=== PATIENT | female | born 1990 | race Two or more races ===

== ENCOUNTER 2020-03-05 04:16 | Emergency (ER) | payer MEDICAID, OTHER ==
[~2020-03-05] VITALS: Ht 154.9 cm; Wt 113.6 kg
[~2020-03-05 04:16] MED LIST: NOCURR
[2020-03-05 05:11] LABS: BASOPHILS % (AUTO) 0.7 % (0.0-2.0); EOSINOPHILS % (AUTO) 1.5 % (1.0-6.0); HEMOGLOBIN 8.1 g/dL (12.0-16.0); LYMPHOCYTES # (AUTO) 2.3 K/uL (1.0-4.8); LYMPHOCYTES % (AUTO) 22.6 % (22.0-44.0); MEAN CORPUSCULAR HEMOGLOBIN 16.6 pg (26.0-34.0); MEAN CORPUSCULAR HGB CONC 29.9 G/dL (31.0-37.0); MEAN CORPUSCULAR VOLUME 56 fL (80-100); MONOCYTES # (AUTO) 0.5 K/uL (0.1-1.0); NEUTROPHILS % (AUTO) 70.2 % (40.0-70.0); PLATELET COUNT (AUTO) 594 K/uL (150-450); RED BLOOD CELL COUNT(AUTO) 4.85 MIL/uL (4.00-5.20); RED CELL DISTRIBUTION WIDTH 20.2 % (11.5-14.5)
[2020-03-05 07:01] VITALS: BP 124/88
== END 2020-03-05 07:05 | disposition home or self-care (01) ==
LOC: EMS 04:16
DX: N92.1 Excessive and frequent menstruation with irregular cycle (principal)
CPT/HCPCS: 76856; 86850; 86900; 86901

== ENCOUNTER 2020-11-26 15:12 | Emergency (ER) | payer MEDICAID ==
[~2020-11-26] VITALS: Ht 154.9 cm; Wt 118.2 kg
[2020-11-26 15:14] VITALS: BP 137/88
== END 2020-11-26 16:11 | disposition home or self-care (01) ==
LOC: EMS 15:13
DX: K05.10 Chronic gingivitis, plaque induced (principal); K08.89 Other specified disorders of teeth and supporting structures
CPT/HCPCS: 99283; Z7502

== ENCOUNTER 2022-10-08 22:01 | Emergency (ER) | payer MEDICAID ==
[~2022-10-08] VITALS: Ht 154.9 cm; Wt 114.0 kg
[2022-10-08 23:12] LABS: BASOPHILS % (AUTO) 0.6 % (0.0-2.0); HEMATOCRIT 36.4 % (36-46); HEMOGLOBIN 11.5 g/dL (12.0-16.0); LYMPHOCYTES # (AUTO) 2.7 K/uL (1.0-4.8); LYMPHOCYTES % (AUTO) 26.3 % (22.0-44.0); MEAN CORPUSCULAR HEMOGLOBIN 21.8 pg (26.0-34.0); MEAN CORPUSCULAR HGB CONC 31.6 G/dL (31.0-37.0); MEAN CORPUSCULAR VOLUME 69 fL (80-100); MONOCYTES # (AUTO) 0.6 K/uL (0.1-1.0); MONOCYTES % (AUTO) 5.7 % (2.0-9.0); NEUTROPHILS # (AUTO) 6.6 K/uL (1.8-7.7); NEUTROPHILS % (AUTO) 65.4 % (40.0-70.0); PLATELET COUNT (AUTO) 424 K/uL (150-450); RED BLOOD CELL COUNT(AUTO) 5.26 MIL/uL (4.00-5.20); RED CELL DISTRIBUTION WIDTH 20.2 % (11.5-14.5)
[2022-10-08 23:25] LABS: ANION GAP 8 mmol/L (8-16); CALCIUM, TOTAL 8.9 mg/dL (8.8-10.5); CARBON DIOXIDE 26 mmol/L (22-29); CHLORIDE 100 mmol/L (98-107); GLOMERULAR FILTR. RATE CALC > 60 mL/min (>60); GLUCOSE,RANDOM 112 mg/dL (70-110); POTASSIUM 3.7 mmol/L (3.5-5.1); PROTHROMBIN TIME 10.2 SEC (9.4-11.6); SODIUM SERUM 134 mmol/L (136-145); UREA NITROGEN, BLOOD 16 mg/dL (7-18)
[2022-10-09 00:17] LABS: ERYTHROCYTE SEDIMENTATION RATE 72 MM/HR (0-20)
[2022-10-09 00:25] LABS: APPEARANCE,URINE CLEAR (CLEAR); BILIRUBIN,URINE NEGATIVE (NEGATIVE); GLUCOSE, URINE (UA) NEGATIVE (NEGATIVE); KETONES,URINE TRACE mg/dL (NEGATIVE); LEUKOCYTE ESTERASE ,URINE NEGATIVE (NEGATIVE); NITRATE,URINE NEGATIVE (NEGATIVE); OCCULT BLOOD,URINE SMALL (NEGATIVE); PH,URINE 5.5 (5.0-8.0); PROTEIN,URINE TRACE mg/dL (NEGATIVE); SPECIFIC GRAVITIY, URINE 1.033 (1.003-1.030); UROBILINOGEN,URINE <=1.0 mg/dL (<=1.0)
[2022-10-09 00:41] LABS: BACTERIA,URINE None Seen /HPF (None Seen); HYALINE CASTS, URINE 0-2 /LPF (None Seen); RBC,URINE 0-2 /HPF (0-2); SQUAMOUS EPITHELIAL CELL,UR Few /LPF (None Seen); WBC,URINE None Seen /HPF (0-5)
[2022-10-09 01:02] VITALS: BP 132/70
== END 2022-10-09 01:03 | disposition home or self-care (01) ==
LOC: EMS 22:03
DX: D69.0 Allergic purpura (principal)
CPT/HCPCS: 80048; 81001; 85025; 85610; 85651; 85730; 99283

== ENCOUNTER 2022-11-18 10:37 | Emergency (ER) | payer OTHER ==
[~2022-11-18] VITALS: Ht 154.9 cm; Wt 125.5 kg
[2022-11-18] MEDS ORDERED: ATOR80TA PO (10:49)
[2022-11-18] MEDS ORDERED: AMOX500T2 PO (10:49)
[2022-11-18] MEDS ORDERED: SPIR-37 PO (10:49)
[2022-11-18] MEDS ORDERED: [UNRECOGNIZED DRUG - OTHER] PO (10:49)
[2022-11-18] MEDS ORDERED: [UNRECOGNIZED DRUG - OTHER] PO (10:49)
[2022-11-18] MEDS ORDERED: ONDANSETRON HCL 4 MG/2 ML VIAL IVP ONE ×2 (11:15→13:00)
[2022-11-18] MEDS ORDERED: SODIUM CHLORIDE 0.9% 1,000 ML IV ONE ×2 (11:15→13:00)
[2022-11-18 11:19] LABS: BASOPHILS % (AUTO) 0.5 % (0.0-2.0); EOSINOPHILS % (AUTO) 0.3 % (1.0-6.0); HEMATOCRIT 41.7 % (36-46); HEMOGLOBIN 13.4 g/dL (12.0-16.0); LYMPHOCYTES # (AUTO) 2.3 K/uL (1.0-4.8); MEAN CORPUSCULAR HEMOGLOBIN 22.6 pg (26.0-34.0); MEAN CORPUSCULAR VOLUME 71 fL (80-100); MONOCYTES % (AUTO) 7.2 % (2.0-9.0); NEUTROPHILS # (AUTO) 10.8 K/uL (1.8-7.7); PLATELET COUNT (AUTO) 555 K/uL (150-450); RED BLOOD CELL COUNT(AUTO) 5.92 MIL/uL (4.00-5.20); RED CELL DISTRIBUTION WIDTH 19.1 % (11.5-14.5)
[2022-11-18 11:43] LABS: ALANINE AMINOTRANSFERASE 25 U/L (12-78); ALBUMIN 3.4 g/dL (3.4-5.0); ALKALINE PHOSPHATASE 88 U/L (46-116); ANION GAP 8 mmol/L (8-16); ASPARTATE AMINOTRANSFERASE 24 U/L (15-37); BILIRUBIN,TOTAL 0.4 mg/dL (0.1-1.0); CALCIUM, TOTAL 9.3 mg/dL (8.8-10.5); CARBON DIOXIDE 29 mmol/L (22-29); CHLORIDE 97 mmol/L (98-107); CREATININE 0.97 mg/dL (0.60-1.30); GLOMERULAR FILTR. RATE CALC > 60 mL/min (>60); GLUCOSE,RANDOM 116 mg/dL (70-110); HCG,QUANTITATIVE < 1 mIU/mL (0-6); LIPASE 70 U/L (73-393); SODIUM SERUM 134 mmol/L (136-145); TOTAL PROTEIN, SERUM 7.8 g/dL (6.4-8.2); UREA NITROGEN, BLOOD 9 mg/dL (7-18)
[2022-11-18 11:44] LABS: POTASSIUM 2.9 mmol/L (3.5-5.1)
[2022-11-18] MEDS ORDERED: POTASSIUM CHL 10 MEQ/WATER 50 ML IV ONE (12:15)
[2022-11-18] MEDS ORDERED: POTASSIUM CHLORIDE 20 MEQ ER TABLET PO ONE (12:15)
[2022-11-18 12:42] LABS: COVID AG,FIA SOURCE NASAL SWAB
[2022-11-18] MEDS ORDERED: MORPHINE SULFATE 4 MG/ML SYRINGE IVP ONE (13:00)
[2022-11-18 13:07] LABS: INFLUENZA TYPE A NEGATIVE FOR TYPE A (NEGATIVE); INFLUENZA TYPE B NEGATIVE FOR TYPE B (NEGATIVE)
[2022-11-18] MEDS ORDERED: IOHEXOL 350 MG/ML 100 ML VIAL ONE (13:07)
[2022-11-18] MEDS ORDERED: SODIUM CHLORIDE 0.9% 100 ML ONE (13:07)
[2022-11-18 13:15] LABS: BILIRUBIN,URINE NEGATIVE (NEGATIVE); GLUCOSE, URINE (UA) NEGATIVE (NEGATIVE); KETONES,URINE NEGATIVE (NEGATIVE); LEUKOCYTE ESTERASE ,URINE SMALL (NEGATIVE); NITRATE,URINE NEGATIVE (NEGATIVE); OCCULT BLOOD,URINE LARGE (NEGATIVE); PH,URINE 7.5 (5.0-8.0); PROTEIN,URINE 100-200,SEE CONFIRM mg/dL (NEGATIVE); SPECIFIC GRAVITIY, URINE 1.007 (1.003-1.030); UROBILINOGEN,URINE <=1.0 mg/dL (<=1.0)
[2022-11-18 13:18] LABS: APPEARANCE,URINE HAZY (CLEAR)
[2022-11-18 13:25] LABS: SULFOSALICYLIC ACID,URINE 2+ (Negative)
[2022-11-18 13:26] LABS: BACTERIA,URINE Few /HPF (None Seen); SQUAMOUS EPITHELIAL CELL,UR Few /LPF (None Seen)
[2022-11-18 13:51] VITALS: BP 133/80
[2022-11-18] MEDS ORDERED: ATOR20TA86 PO (13:55)
[2022-11-18] MEDS ORDERED: CefTRIAXone 1 GM/DEXTROSE 50 ML IV ONE (14:00)
[2022-11-18] MEDS ORDERED: CefTRIAXone SODIUM 500 MG in DEXTROSE 5%-WATER 50 ML IV ONE (14:00)
[2022-11-18] MEDS ORDERED: DIPHENOXYLATE/ATROP 2.5-0.025 MG TABLET PO ONE (15:00)
[2022-11-18] MEDS ORDERED: ACETAMINOPHEN 500 MG TABLET PO ONE (15:00)
[2022-11-18] MEDS ORDERED: ONDANSETRON HCL 4 MG TABLET PO ONE (15:00)
[2022-11-18] MEDS ORDERED: ONDA-104 PO (15:06)
[2022-11-18] MEDS ORDERED: ACET-66 PO (15:06)
[2022-11-18] MEDS ORDERED: DIPH-654 PO (15:06)
[2022-11-18] MEDS ORDERED: CEPH-556 PO (15:08)
== END 2022-11-18 15:33 | disposition home or self-care (01) ==
LOC: EMS 10:42
DX: K52.9 Noninfective gastroenteritis and colitis, unspecified (principal); E87.6 Hypokalemia; N39.0 Urinary tract infection, site not specified; Z20.822 Contact with and (suspected) exposure to COVID-19
CPT/HCPCS: 99285; 74177; 96365; 96361; 96375; 96367; 87426; 80053; 81001; 83690; 83735; 84702; 85025; 87804; 36415; 87086; 87186; 96376; J0696; J2270; J2405; Q9967; J3480; J7030; 81002; J7050; J7060; Q0162